=== PATIENT | female | born 1960 | race Caucasian/White ===

== ENCOUNTER 2021-07-19 10:59 | Emergency (ER) | payer BC ==
[~2021-07-19] VITALS: Ht 162.6 cm; Wt 103.6 kg
[2021-07-19 11:34] LABS: CLARITY,URINE CLEAR (Clear); GLUCOSE, URINE 100 mg/dl (Neg); KETONES,URINE TRACE mg/dl (Neg); LEUKOCYTE ESTERASE ,URINE NEGATIVE (Neg); OCCULT BLOOD,URINE MODERATE (Neg); PROTEIN,URINE >=300 mg/dl (Neg)
[2021-07-19 11:35] LABS: COLOR,URINE DARK YELLOW (Yellow); UA COLLECTION TYPE CLN CATCH MIDSTREAM
[2021-07-19 11:40] LABS: NITRITES, URINE NEGATIVE (Neg); WBC,URINE 0-4 /HPF (0-4)
[2021-07-19 11:41] LABS: BACTERIA,URINE NONE SEEN /HPF (Neg); MUCUS STRANDS NONE SEEN /LPF (Neg); RBC,URINE 20-50 /HPF (0-2); SQUAMOUS EPITHELIAL CELL,UR FEW /LPF (FEW)
[2021-07-19 12:05] VITALS: BP 164/98
[2021-07-19] MEDS ORDERED: normal saline 1000ml 1,000 ML IV ONE (12:05)
[2021-07-19] MEDS ORDERED: ketorolac trometh. 30mg/ml inj. IM ONE (12:05)
[2021-07-19] MEDS ORDERED: HYDR-3965 PO (12:46)
[2021-07-19] MEDS ORDERED: FLO0.4C PO (12:46)
[2021-07-19] MEDS ORDERED: ONDA4TAB6 PO (12:46)
[2021-07-19] MEDS ORDERED: HYDROcodone/acetaminophen 5mg/325mg tablet PO ONE (12:55)
[2021-07-19] MEDS ORDERED: ondansetron 4mg rapidly disintigrating tab PO ONE (12:55)
== END 2021-07-19 13:29 | disposition home or self-care (01) ==
LOC: ER 10:59
DX: R10.9 Unspecified abdominal pain (principal); N20.0 Calculus of kidney; R11.10 Vomiting, unspecified; Z88.0 Allergy status to penicillin; Z79.899 Other long term (current) drug therapy; Z87.442 Personal history of urinary calculi
CPT/HCPCS: 81001; 96372; 99283; J1885